=== PATIENT | female | born 1940 | race Caucasian/White ===

== ENCOUNTER 2016-08-26 21:50 | Emergency (ER) | payer MEDICARE ==
--- NOTE | 2016-08-30 11:58 | ER ---
ADMIT: 08/26/2016 RM/LOC: ER [facility] MR#: [id number] [id number] [place] [address] [place] [address] Emergency Room Report SEX: F AGE: 76 : 1940 DATE: 08/26/2016 SUBJECTIVE: The patient is a 76-year-old female with a past medical history of hypertension, who came here with a chief complaint of right flank pain status post ground level fall. The patient states she noticed there was a snake on the ground and she wanted to avoid it, and she fell on the right side. The patient denies any head trauma. Incident happened at 09:00 p.m. After that, the patient stood up and walked. The patient has no problem walking and complains of mild right flank pain which per the patient is similar to the muscle bruising. The patient denies any spinal midline pain and denies any neck pain or pain in other extremities. PHYSICAL EXAMINATION: GENERAL: The patient was alert and oriented, in no obvious pain or distress. VITAL SIGNS: Stable. HEAD AND NECK: There are no signs of trauma. Pupils are 3 mm, reactive to light bilaterally. There is no midline tenderness or step-offs in the spine. PELVIS: Stable without any tenderness. CHEST: Clear bilaterally. HEART: Normal heart sounds. ABDOMEN: Soft. I did not see any bruising or tenderness or rebound on the abdomen. EXTREMITIES: Have normal range of motion especially with the hips without any tenderness. Rest of the physical exam is noncontributory. Pelvic x-ray was negative for any fracture or dislocations or acute changes. Urine was negative for red blood cells or other pathologies. The patient can ambulate without difficulty and has normal gait and was discharged to home with return precautions and with a diagnosis of right flank contusion status post ground-level fall. The patient was advised to use Tylenol or Motrin for pain. Jose Dunn MD/ licha JOB #: [id number] CC: Jose Dunn MD, Attending Physician UNKNOWN, Family Physician
== END 2016-08-26 23:30 | disposition home or self-care (01) ==
LOC: ER 21:50
DX: S30.1XXA Contusion of abdominal wall, initial encounter (principal); I10 Essential (primary) hypertension; Z79.899 Other long term (current) drug therapy; W18.30XA Fall on same level, unspecified, initial encounter